=== PATIENT | male | born 1985 ===

== ENCOUNTER 2018-07-16 15:22 | Emergency (ER) | payer BC ==
[2018-07-16 15:41] VITALS: RESP 18
[2018-07-16] MEDS ORDERED: Sodium Chloride 0.9% 1,000 ML IV ONE (16:05)
[2018-07-16 16:42] LABS: BASO % 0.1 % (0.0-2.0); EOS # 0.1 K/uL (0.0-0.7); EOS % 2.2 % (0.0-4.0); LYMPH # 1.5 K/uL (1.0-4.3); MEAN CELL VOLUME 86.3 fL (80.0-94.0); MEAN CORPUSCULAR HEMOGLOBIN 27.6 pg (27.0-31.0); MEAN CORPUSCULAR HGB CONC 31.9 g/dL (33.0-37.0); MEAN PLATELET VOLUME 8.8 fL (7.2-11.7); MONO # 0.4 K/uL (0.0-0.8); NEUT # 4.3 K/uL (1.8-7.0); NEUT % 67.7 % (50.0-75.0); NRBC % 0.1 % (0.0-2.0); RBC 5.06 Mil/uL (4.40-5.90); RED CELL DISTRIBUTION WIDTH 13.5 % (11.5-14.5); WHITE BLOOD COUNT 6.3 K/uL (4.8-10.8)
[2018-07-16] MEDS ORDERED: Sodium Chloride 0.9% 1,000 ML ONE (16:42)
--- NOTE | 2018-07-16 16:44 | C.PDOC ---
History Of Present Illness 32 y/o male presents to the ER complaining of nausea and diarrhea which has been present for the past 4 days. Patient states that he is having difficulty tolerating PO and vomited x1 4 days ago. He notes that he has abdominal pain wh en he eats and he feels bloated afterwards. Patient reports that he has 3-4 episodes of dark watery stools. Denies having fever,chills, dysuria, hematuria, sick contacts, and recent travel. Time Seen by Provider: 07/16/18 16:00 Chief Complaint (Nursing): Abdominal Pain History Per: Patient History/Exam Limitations: no limitations Onset/Duration Of Symptoms: Days Current Symptoms Are (Timing): Still Present Severity: Moderate Past Medical History Reviewed: Historical Data, Nursing Documentation, Vital Signs Vital Signs: Last Vital Signs Temp 98.6 F 07/16/18 15:38 Pulse 88 07/16/18 15:38 Resp 18 07/16/18 15:38 BP 141/81 07/16/18 15:38 Pulse Ox 97 07/16/18 15:38 - Medical History PMH: No Chronic Diseases Surgical History: No Surg Hx Family History: States: No Known Family Hx - Social History Hx Alcohol Use: Yes Hx Substance Use: No - Immunization History Hx Tetanus Toxoid Vaccination: Yes Hx Influenza Vaccination: No Hx Pneumococcal Vaccination: No Review Of Systems Constitutional: Negative for: Fever, Chills Cardiovascular: Negative for: Chest Pain Respiratory: Negative for: Shortness of Breath Gastrointestinal: Positive for: Nausea, Vomiting, Abdominal Pain, Diarrhea Genitourinary: Negative for: Dysuria, Hematuria Physical Exam - Physical Exam Appears: Non-toxic, No Acute Distress Skin: Normal Color, Warm, Dry Head: Atraumatic, Normacephalic Eye(s): bilateral: Normal Inspection Nose: Normal Oral Mucosa: Dry Neck: Supple Chest: Symmetrical Cardiovascular: Rhythm Regular Respiratory: Normal Breath Sounds, No Rales, No Rhonchi, No Wheezing Gastrointestinal/Abdominal: Bowel Sounds (hyperactive bowel sounds), Soft, No Tenderness, No Guarding, No Rebound Neurological/Psych: Oriented x3, Normal Speech ED Course And Treatment - Laboratory Results Result Diagrams: 07/16/18 16:39 07/16/18 16:39 Lab Interpretation: No Acute Changes O2 Sat by Pulse Oximetry: 97 (RA) Pulse Ox Interpretation: Normal Reevaluation Time: 19:21 Reassessment Condition: Improved (after IV fluids and Bentyl and Zofran.) Medical Decision Making Medical Decision Making: Plan: --Labs --UA --IV Fluids --Zofran IV --Bentyl IM Disposition Counseled Patient/Family Regarding: Studies Performed, Diagnosis, Need For Followup, Rx Given - Disposition Referrals: [facility] [Outside] Disposition: HOME/ ROUTINE Disposition Time: 19:22 Condition: IMPROVED Prescriptions: Dicyclomine [Bentyl] 20 mg PO QID PRN #14 tab PRN Reason: Pain, Severe (8-10) Instructions: Diarrhea in Adolescents and Adults, [place] Diet Forms: Patients Know Best (Hungarian) - Clinical Impression Clinical Impression: Nausea, Diarrhea - Scribe Statement The provider has reviewed the documentation as recorded by the Fariba Dowell Provider Attestation: All medical record entries made by the Aleenaiblast were at my direction and personally dictated by me. I have reviewed the chart and agree that the record accurately reflects my personal performance of the history, physical exam, medical decision making, and the department course for this patient. I have also personally directed, reviewed, and agree with the discharge instructions and disposition.
[2018-07-16 16:55] LABS: ALB/GLOB RATIO 1.9 (1.0-2.1); ALBUMIN 4.7 g/dL (3.5-5.0); ALT/SGPT 61 U/L (21-72); AST/SGOT 21 U/L (17-59); BLOOD UREA NITROGEN 13 mg/dL (9-20); CALCIUM 8.9 mg/dl (8.6-10.4); GFR NON-AFRICAN AMERICAN > 60; LIPASE 100 U/L (23-300)
[2018-07-16 18:37] LABS: SQUAMOUS EPITHIAL < 1 /hpf (0-5); URINE BACTERIA RARE (<OCC); URINE BILIRUBIN NEGATIVE (NEGATIVE); URINE BLOOD NEGATIVE (NEGATIVE); URINE CLARITY Clear (Clear); URINE COLOR Yellow (YELLOW); URINE GLUCOSE (UA) NORMAL (Normal); URINE LEUKOCYTE ESTERASE NEG Leu/uL (Negative); URINE PROTEIN NEGATIVE (NEGATIVE); URINE UROBILINOGEN NORMAL mg/dL (0.2-1.0)
[2018-07-16 20:19] VITALS: BP 125/74; PULSE 73; TEMP 97.8; O2SAT 95
== END 2018-07-16 20:19 | disposition home or self-care (01) ==
LOC: C.ER 15:22
DX: R11.0 Nausea (principal); R19.7 Diarrhea, unspecified
CPT/HCPCS: 80053; 81001; 83690; 85025; 96361; 96372; 96374; 99284; G0328; J0500; J2405; J7030

== ENCOUNTER → 2018-08-26 | Outpatient (CLI) | payer BC | END | disposition home or self-care (01) | LOC: C.CARD 11:13 | DX: E66.9 Obesity, unspecified (principal); Z68.35 Body mass index [BMI] 35.0-35.9, adult ==